=== PATIENT | female | born 1995 ===

== ENCOUNTER → 2016-12-14 | Outpatient (CLI) | payer OTHER | END | disposition home or self-care (01) | LOC: C.RDSM 07:45 | PROVIDERS: ATTEND Physical Medicine & Rehabilitation Sports Medicine | DX: M25.561 Pain in right knee (principal) ==

== ENCOUNTER 2017-12-11 17:47 | Emergency (ER) | payer OTHER ==
[~2017-12-11] VITALS: Ht 167.6 cm; Wt 67.9 kg
[2017-12-11 17:48] VITALS: TEMP 36.7; Ht 167.6 cm; Wt 67.9 kg
[2017-12-11] MEDS ORDERED: ACETAMINOPHEN 325 MG TAB PO STA (18:14)
[2017-12-11] MEDS ORDERED: ONDANSETRON INJ 2 MG/ML 2 ML VIAL IV STA (18:14)
[2017-12-11] MEDS ORDERED: SODIUM CHLORIDE 0.9% 1000ML 1,000 ML IV STA (18:14)
[2017-12-11 19:08] LABS: BASO % 0.4 %; BASO ABS # 0.03 K/uL (0-0.2); EOS % 1.9 %; EOS ABS # 0.14 K/uL (0-0.5); HEMATOCRIT 39.8 % (37-47); IG# 0.01 K/uL (0.00-0.02); LYMPH % 40.1 %; LYMPH ABS # 2.95 K/uL (1.2-3.4); MEAN CELL VOLUME 87.9 fL (80-100); MEAN CORPUSCULAR HEMOGLOBIN 30.9 pg (25-34); MEAN CORPUSCULAR HGB CONC 35.2 g/dl (32-36); MEAN PLATELET VOLUME 9.8 fL (7.4-10.4); MONO % 6.4 %; MONO ABS # 0.47 K/uL (0.11-0.59); NEUT % 51.1 %; NEUT ABS # 3.76 K/uL (1.4-6.5); PLATELET COUNT 256 K/uL (130-400); RED CELL DISTRIBUTION WIDTH SD 38.1 fL (36.4-46.3); WHITE BLOOD COUNT 7.36 K/uL (4.8-10.8)
[2017-12-11] MEDS ORDERED: CYCL10TA6 PO (19:25)
--- NOTE | 2017-12-11 19:26 | DIAGNOSTIC IMAGING REPORT ---
CT SCAN OF THE BRAIN WITHOUT IV CONTRAST CLINICAL HISTORY: Headache. COMPARISON STUDY: No priors. TECHNIQUE: Unenhanced axial CT scan of the brain is performed from the vertex to the skull base. A dose lowering technique was utilized adhering to the principles of ALARA. The skull base was scanned twice due to motion artifact. CT DOSE: 767.83 mGy.cm FINDINGS: Brain parenchyma: The brain parenchyma is normal in appearance. There is no hemorrhage, mass effect, or evidence of acute territorial ischemia by CT criteria. Rubio-white matter is preserved. No extra-axial fluid collection is seen. Ventricles, sulci, cisterns: Normal in configuration. Intracranial vasculature: The visualized intracranial vasculature at the skull base is normal in appearance. Calvarium: Unremarkable. Sinuses and mastoids: The visualized paranasal sinuses are clear. The mastoid air cells are well pneumatized. Orbits: The bony orbits are grossly intact. IMPRESSION: No acute intracranial abnormality. Electronically signed by: Dom Oshea M.D. 12/11/2017 7:24 PM Dictated Date/Time: 12/11/2017 7:22 PM
[2017-12-11 19:32] LABS: ALBUMIN 3.5 gm/dl (3.4-5.0); CALCIUM 8.5 mg/dl (8.5-10.1); CREATININE 0.9 mg/dl (0.60-1.20); POTASSIUM 3.3 mmol/L (3.5-5.1)
--- NOTE | 2017-12-11 19:33 | EMERGENCY ROOM VISIT NOTE ---
History Report prepared by Lisbet: Rei Burton Under the Supervision of: Dr. Dom Dixon M.D. First contact with patient: 18:05 Chief Complaint: NAUSEA Stated Complaint: CRAMPS,HEADACHE,MUSCLE PAIN,NAUSEA History of Present Illness The patient is a 22 year old female who presents to the Emergency Room with complaints of persistent general nausea since November 22, 2017. 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 She returned to the November 20, 2017 and developed nausea and abdominal pains two days later. She notes that her PCP did prescribe Doxycycline prior to her trip. She reports taking three doses prior to leaving and then two or three doses while she was there, though she lost the medication in her luggage and did not complete the antibiotic treatment. She notes that she also developed a headache that radiated to her eyes and neck. She states the headache has been constant for the last three weeks. She reports that she was seen by [facility] after her trip and was diagnosed with gastroenteritis. She was later prescribed Cyclobenzaprine through urgent care--this was given for her headache. She states that she did not begin taking that medication until yesterday. She reports developing abdominal cramps yesterday. She notes that she also took two 500 mg Tylenol yesterday morning and then again last night. She notes her headache has improved, though she is still nauseous. She states that she woke up this morning feeling even weaker. She has a history of PCOS. She denies any other underlying medical problems. 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 She denies eating any food today. Her last dose of Tylenol was last night. She denies any illness while she was traveling. She denies any diarrhea, fever, chills, or vomiting. She denies any cough, cold, congestion, sore throat, stuffy nose, or urinary symptoms. Source of History: patient Onset: November 22, 2017 Position: other (general) Quality: other (nausea) Timing: other (persistent) Associated Symptoms: + headache, + neck pain, + abdominal pain, + weakness, No fevers, No chills, No sorethroat, No cough, No vomiting, No diarrhea, No urinary symptoms Note: She notes cramping. She denies any congestion, cold, or stuffy nose. Review of Systems See HPI for pertinent positives & negatives. A total of 10 systems reviewed and were otherwise negative. Past Medical & Surgical Medical Problems: (1) PCOS (polycystic ovarian syndrome) Family History Cancer Diabetes mellitus FH: heart disease Hypertension Social History Smoking Status: Never Smoker Smokeless Tobacco Use: No Alcohol Use: occasionally Drug Use: none Marital Status: single Housing Status: lives with family Occupation Status: employed Current/Historical Medications Scheduled Ondasetron Odt (Zofran Odt), 4 MG SL Q6H Scheduled PRN Cyclobenzaprine Hcl (Flexeril), 10 MG PO BID PRN for Muscle Spasms Allergies Coded Allergies: Amoxicillin (Unverified Adverse Reaction, Unknown, MAKES STOMACH BURN, 12/11) Penicillins (Unverified Adverse Reaction, Unknown, MAKES STOMACH BURN, 12/11) Physical Exam Vital Signs Date Time Temp Pulse Resp B/P (MAP) Pulse Ox O2 Delivery O2 Flow Rate FiO2 12/11/17 21:27 66 16 121/71 99 12/11/17 19:28 65 18 123/76 98 Room Air 12/11/17 17:48 36.7 67 16 123/85 99 Room Air Physical Exam GENERAL: Patient is in no acute distress. HEENT: No acute trauma, normocephalic atraumatic, mucous membranes moist, no nasal congestion, no scleral icterus. NECK: No stridor, no adenopathy, no meningismus, trachea is midline. LUNGS: Clear to auscultation bilaterally, no wheeze, no rhonchi, breath sounds equal. HEART: Without murmurs gallops or rubs, regular rate and rhythm. ABDOMEN: Soft, nontender, bowel sounds positive, no hernias, no peritonitis. EXTREMITIES: No cyanosis or edema, full range of motion of all the joints without pain or difficulty, no signs for acute trauma. NEUROLOGIC: Oriented x 3, no acute motor or sensory deficits, no focal weakness. SKIN: No rash, no jaundice, no diaphoresis. Medical Decision & Procedures ER Provider Diagnostic Interpretation: Radiology results as stated below per my review and radiologist interpretation: PA CHEST WITH ABDOMINAL SERIES CLINICAL HISTORY: Crampy abdominal pain. Nausea. FINDINGS: A PA chest radiograph is obtained. No prior studies are available for comparison at the time of dictation. The cardiomediastinal silhouette is unremarkable. The lungs and pleural spaces are clear. No pneumothorax is seen. The bony thorax is grossly intact. Supine and erect abdominal radiographs are obtained. No prior studies are available for comparison at the time of dictation. There is a nonobstructed abdominal bowel gas pattern. Mild to moderate colonic fecal retention is observed. No evidence of intraperitoneal free air is seen. An intrauterine device is noted in the pelvis. There are no abnormal abdominal calcifications. The lumbosacral spine and bony pelvis appear intact. IMPRESSION: 1. No active disease in the chest. 2. Nonobstructed abdominal bowel gas pattern. Electronically signed by: Dom Oshea M.D. 12/11/2017 8:18 PM Dictated Date/Time: 12/11/2017 8:[address] SCAN OF THE BRAIN WITHOUT IV CONTRAST CLINICAL HISTORY: Headache. COMPARISON STUDY: No priors. TECHNIQUE: Unenhanced axial CT scan of the brain is performed from the vertex to the skull base. A dose lowering technique was utilized adhering to the principles of ALARA. The skull base was scanned twice due to motion artifact. CT DOSE: 767.83 mGy.cm FINDINGS: Brain parenchyma: The brain parenchyma is normal in appearance. There is no hemorrhage, mass effect, or evidence of acute territorial ischemia by CT criteria. Rubio-white matter is preserved. No extra-axial fluid collection is seen. Ventricles, sulci, cisterns: Normal in configuration. Intracranial vasculature: The visualized intracranial vasculature at the skull base is normal in appearance. Calvarium: Unremarkable. Sinuses and mastoids: The visualized paranasal sinuses are clear. The mastoid air cells are well pneumatized. Orbits: The bony orbits are grossly intact. IMPRESSION: No acute intracranial abnormality. Electronically signed by: Dom Oshea M.D. 12/11/2017 7:24 PM Dictated Date/Time: 12/11/2017 7:22 PM Laboratory Results 12/11/17 18:38 Red Blood Count 4.53, Mean Corpuscular Volume 87.9, Mean Corpuscular Hemoglobin 30.9, Mean Corpuscular Hemoglobin Concent 35.2, Mean Platelet Volume 9.8, Neutrophils (%) (Auto) 51.1, Lymphocytes (%) (Auto) 40.1, Monocytes (%) (Auto) 6.4, Eosinophils (%) (Auto) 1.9, Basophils (%) (Auto) 0.4, Neutrophils # (Auto) 3.76, Lymphocytes # (Auto) 2.95, Monocytes # (Auto) 0.47, Eosinophils # (Auto) 0.14, Basophils # (Auto) 0.03 12/11/17 18:38 Test 12/11/17 18:38 12/11/17 20:08 White Blood Count 7.36 K/uL (4.8-10.8) Red Blood Count 4.53 M/uL (4.2-5.4) Hemoglobin 14.0 g/dL (12.0-16.0) Hematocrit 39.8 % (37-47) Mean Corpuscular Volume 87.9 fL (80-100) Mean Corpuscular Hemoglobin 30.9 pg (25-34) Mean Corpuscular Hemoglobin Concent 35.2 g/dl (32-36) Platelet Count 256 K/uL (130-400) Mean Platelet Volume 9.8 fL (7.4-10.4) Neutrophils (%) (Auto) 51.1 % Lymphocytes (%) (Auto) 40.1 % Monocytes (%) (Auto) 6.4 % Eosinophils (%) (Auto) 1.9 % Basophils (%) (Auto) 0.4 % Neutrophils # (Auto) 3.76 K/uL (1.4-6.5) Lymphocytes # (Auto) 2.95 K/uL (1.2-3.4) Monocytes # (Auto) 0.47 K/uL (0.11-0.59) Eosinophils # (Auto) 0.14 K/uL (0-0.5) Basophils # (Auto) 0.03 K/uL (0-0.2) RDW Standard Deviation 38.1 fL (36.4-46.3) RDW Coefficient of Variation 12.0 % (11.5-14.5) Immature Granulocyte % (Auto) 0.1 % Immature Granulocyte # (Auto) 0.01 K/uL (0.00-0.02) Anion Gap 8.0 mmol/L (3-11) Est Creatinine Clear Calc Drug Dose 92.5 ml/min Estimated GFR () 105.9 Estimated GFR (Non- 91.4 BUN/Creatinine Ratio 14.0 (10-20) Calcium Level 8.5 mg/dl (8.5-10.1) Total Bilirubin 0.5 mg/dl (0.2-1) Aspartate Amino Transf (AST/SGOT) 14 U/L (15-37) Alanine Aminotransferase (ALT/SGPT) 16 U/L (12-78) Alkaline Phosphatase 53 U/L (45-117) Total Protein 7.4 gm/dl (6.4-8.2) Albumin 3.5 gm/dl (3.4-5.0) Globulin 3.9 gm/dl (2.5-4.0) Albumin/Globulin Ratio 0.9 (0.9-2) Thyroid Stimulating Hormone (TSH) 1.010 uIu/ml (0.300-4.500) Human Chorionic Gonadotropin, Qual NEG (NEG) Urine Color YELLOW Urine Appearance CLEAR (CLEAR) Urine pH 6.0 (4.5-7.5) Urine Specific Fosters 1.016 (1.000-1.030) Urine Protein NEG (NEG) Urine Glucose (UA) NEG (NEG) Urine Ketones NEG (NEG) Urine Occult Blood TRACE (NEG) Urine Nitrite NEG (NEG) Urine Bilirubin NEG (NEG) Urine Urobilinogen NEG (NEG) Urine Leukocyte Esterase SMALL (NEG) Urine WBC (Auto) 5-10 /hpf (0-5) Urine RBC (Auto) 0-4 /hpf (0-4) Urine Hyaline Casts (Auto) 1-5 /lpf (0-5) Urine Epithelial Cells (Auto) >30 /lpf (0-5) Urine Bacteria (Auto) 1+ (NEG) Laboratory results reviewed by me. Medications Administered Medications (Trade) Dose Ordered Sig/Hao Route Start Time Stop Time Status Last Admin Dose Admin Ondansetron HCl (Zofran Inj) 4 mg NOW STAT IV 12/11/17 18:14 12/11/17 18:20 DC 12/11/17 18:34 4 MG Acetaminophen (Tylenol Tab) 650 mg NOW STAT PO 12/11/17 18:14 12/11/17 18:20 DC 12/11/17 18:35 650 MG Sodium Chloride 1,000 ml @ 999 mls/hr Q1H1M STAT IV 12/11/17 18:14 18 19:14 DC 12/11/17 18:34 999 MLS/HR Ondansetron HCl (ZOFRAN ODT 4MG Home Pack) 1 homepack UD ONCE PO 12/11/17 21:00 12/11/17 21:06 DC 12/11/17 21:19 1 HOMEPACK ECG Per My Interpretation Indication: nausea Rate (beats per minute): 63 Rhythm: normal sinus, other (with sinus arrythmia) Findings: no ectopy (no PVC), other (no ST elevation) ED Course 1808: The patient was evaluated in room B2. A complete history and physical exam was performed. 1813: Ordered Sodium Chloride 1,000 ml @ 999 mls/hr IV, Tylenol 650 mg PO, and Zofran 4 mg IV 2021: I reassessed the patient at this time. She if feeling better. 2051: I reassessed the patient at this time. She is feeling better and resting comfortably. I discussed the results and treatment plan with the patient. I answered all pertaining questions that she had. She expressed understanding and verbalized agreement. The patient will be discharged home. 2099: Ordered Zofran 1 homepack PO Medical Decision The patient is a 22 year old female who presents to the ED with complaints of nausea. Differential diagnoses considered include viral illness, anemia, , foodborne illness, intracranial bleeding/mass, meningitis, PNA, UTI, and electrolyte abnormality. There is no leukocytosis or concerning anemia. No significant electrolyte abnormality, kidney failure, hepatitis. testing is negative. The patient appears to be in a euthyroid state. Urinalysis does not show infection. Obstruction series shows no pneumonia, no bowel obstruction. EKG shows a normal sinus rhythm, no acute ischemia. Brain CT shows no acute bleed or mass-effect. Parasitic blood smear was negative. Blood cultures are pending. The patient received IV saline, oral Tylenol, IV Zofran. She is feeling improved. The patient looks well, her exam is unremarkable, her vital signs are stable. She does not have meningismus, she does not seem toxic. I suspect she has some sort of viral illness that she is slowly recovering from, I did talk with her about reasons to return for a repeat exam. The patient is being discharged to stay hydrated, [id number] pain medication was suggested, she was given a prescription for Zofran. Medication Reconcilliation Current Medication List: was personally reviewed by me Blood Pressure Screening Patient's blood pressure: Normal blood pressure Impression Primary Impression: Nausea Additional Impressions: Abdominal cramping Body aches Headache Scribe Attestation The scribe's documentation has been prepared under my direction and personally reviewed by me in its entirety. I confirm that the note above accurately reflects all work, treatment, procedures, and medical decision making performed by me. Departure Information Dispostion Home / Self-Care Prescriptions Ondasetron Odt (ZOFRAN ODT) 4 Mg Tab 4 MG SL Q6H for Nausea, #10 TAB Prov: Dom Dixon M.D. 12/11/17 Referrals [facility] (PCP) Forms HOME CARE DOCUMENTATION FORM, IMPORTANT VISIT INFORMATION Patient Instructions My [facility] Additional Instructions motrin and or tylenol for pain rest fluids continue the muscle relaxer as prescribed and as needed use zofran 1 tab every 6 hours for nausea as needed imaging and lab testing today was all ok return if worsening Problem Qualifiers
[2017-12-11 19:42] LABS: TOTAL PROTEIN 7.4 gm/dl (6.4-8.2)
--- NOTE | 2017-12-11 20:19 | DIAGNOSTIC IMAGING REPORT ---
PA CHEST WITH ABDOMINAL SERIES CLINICAL HISTORY: Crampy abdominal pain. Nausea. FINDINGS: A PA chest radiograph is obtained. No prior studies are available for comparison at the time of dictation. The cardiomediastinal silhouette is unremarkable. The lungs and pleural spaces are clear. No pneumothorax is seen. The bony thorax is grossly intact. Supine and erect abdominal radiographs are obtained. No prior studies are available for comparison at the time of dictation. There is a nonobstructed abdominal bowel gas pattern. Mild to moderate colonic fecal retention is observed. No evidence of intraperitoneal free air is seen. An intrauterine device is noted in the pelvis. There are no abnormal abdominal calcifications. The lumbosacral spine and bony pelvis appear intact. IMPRESSION: 1. No active disease in the chest. 2. Nonobstructed abdominal bowel gas pattern. Electronically signed by: Dom Oshea M.D. 12/11/2017 8:18 PM Dictated Date/Time: 12/11/2017 8:17 PM
[2017-12-11] MEDS ORDERED: ONDA4TAB10 SL (20:48)
[2017-12-11] MEDS ORDERED: ONDANSETRON HOME PACK 4MG OD TAB PO ONE (21:00)
[2017-12-11 21:27] VITALS: BP 121/71; PULSE 66; O2SAT 99
== END 2017-12-11 21:26 | disposition home or self-care (01) ==
LOC: C.EDB 17:48
DX: R11.0 Nausea (principal); R10.9 Unspecified abdominal pain; R51 Headache; R52 Pain, unspecified; E28.2 Polycystic ovarian syndrome; Z88.0 Allergy status to penicillin; Z88.1 Allergy status to other antibiotic agents